=== PATIENT | female | born 1970 | race Caucasian/White ===

== ENCOUNTER → 2023-08-28 12:54 | Outpatient (REF) | payer BC, SELFPAY | LOC: WDC 12:54 | PROVIDERS: ATTENDING PHYSICIAN Physician Assistant Medical | DX: Z12.31 Encounter for screening mammogram for malignant neoplasm of breast (principal) | CPT/HCPCS: 77063; 77067 ==

== ENCOUNTER → 2024-08-05 06:42 | Outpatient (REF) | payer BC, SELFPAY | LOC: HWRAD 06:42 | PROVIDERS: ATTENDING PHYSICIAN Physician Assistant Medical | DX: R10.11 Right upper quadrant pain (principal) | CPT/HCPCS: 76700 ==

== ENCOUNTER → 2025-01-30 15:21 | Outpatient (REF) | payer BC, SELFPAY | LOC: HWWDC 15:21 | PROVIDERS: ATTENDING PHYSICIAN Physician Assistant Medical | DX: Z12.31 Encounter for screening mammogram for malignant neoplasm of breast (principal) | CPT/HCPCS: 77063; 77067 ==